=== PATIENT | female | born 1960 ===

== ENCOUNTER 2020-11-27 12:30 | Inpatient (IN) | payer OTHER ==
[~2020-11-27] VITALS: Ht 167.6 cm; Wt 99.8 kg
[2020-11-27] MEDS ORDERED: HYZAAR 100-12.1 EACH PO (16:36)
[2020-11-29] MEDS ORDERED: OMEPRAZOLE20 MG (10:00)
== END 2020-11-30 13:32 | disposition home or self-care (01) | DRG 743 ==
LOC: SURH 11-28 07:00 → O/R 11-28 08:15 → OB/GYN 11-28 08:15 → SURH 11-28 12:30 → OB/GYN 11-29 12:17
PROVIDERS: ADMIT Specialist; ATTEND Specialist
PROC: 0UT24ZZ Resection of Bilateral Ovaries, Percutaneous Endoscopic Approach (ICD-10-PCS; 2020-11-28)
PROC: 0UT74ZZ Resection of Bilateral Fallopian Tubes, Percutaneous Endoscopic Approach (ICD-10-PCS; 2020-11-28)
PROC: 0TN64ZZ Release Right Ureter, Percutaneous Endoscopic Approach (ICD-10-PCS; 2020-11-28)
PROC: 0UT94ZZ Resection of Uterus, Percutaneous Endoscopic Approach (ICD-10-PCS; principal; 2020-11-28 07:00)
DX: D27.0 Benign neoplasm of right ovary (principal); N72 Inflammatory disease of cervix uteri; N80.0 Endometriosis of uterus; D25.1 Intramural leiomyoma of uterus; D25.2 Subserosal leiomyoma of uterus; N88.8 Other specified noninflammatory disorders of cervix uteri; N73.6 Female pelvic peritoneal adhesions (postinfective); I10 Essential (primary) hypertension